=== PATIENT | female | born 1970 | race Caucasian/White ===

== ENCOUNTER 2021-06-13 04:00 | Emergency (ER) | payer OTHER, MEDICAID ==
[~2021-06-13] VITALS: Ht 165.1 cm; Wt 117.0 kg
[2021-06-13] MEDS ORDERED: LISINOPRIL20 MG PO (04:24)
[2021-06-13] MEDS ORDERED: LEVO-T75 MCG PO (04:24)
[2021-06-13] MEDS ORDERED: XANAX 0.5 MG0.5 M1 PO (04:24)
[2021-06-13] MEDS ORDERED: PROZAC20 M1 PO (04:25)
[2021-06-13] MEDS ORDERED: LIPITOR 20 MG T20 M1 PO (04:26)
[2021-06-13 05:27] LABS: URINE BILIRUBIN NEGATIVE (Negative); URINE BLOOD NEGATIVE (Negative); URINE CLARITY CLEAR; URINE COLOR YELLOW; URINE GLUCOSE-RANDOM NEGATIVE (Negative); URINE KETONES NEGATIVE (Negative); URINE LEUKOCYTES-REFLEX NEGATIVE (Negative); URINE NITRITE-REFLEX NEGATIVE (Negative); URINE PROTEIN NEGATIVE (Negative); URINE SPECIFIC GRAVITY <= 1.005 (1.005-1.030); URINE UROBILINOGEN 0.2 E.U./dl (0.2-1.0)
[2021-06-13 05:29] LABS: ABSOLUTE BASOPHILS 0.1 thou/uL (0.0-0.2); ABSOLUTE EOSINOPHILS 0.3 thou/uL (0.0-0.7); ABSOLUTE LYMPHOCYTES 1.9 thou/uL (0.8-5.3); ABSOLUTE MONOCYTES 0.5 thou/uL (0.0-1.2); ABSOLUTE NEUTROPHILS 5.5 thou/uL (1.6-8.1); BASOPHILS 0.7 %; EOSINOPHILS 3.1 %; HEMATOCRIT 41.7 % (37.0-47.0); HEMOGLOBIN 13.7 gm/dL (12.0-15.0); LYMPHOCYTES 23.4 %; MCH 30.1 pg (26.0-34.0); MCHC 32.8 g/dL (28.0-37.0); MCV 91.9 fL (80.0-100.0); NUCLEATED RBCS 0 /100WBC; PLATELET COUNT* 293 thou/uL (150-400); POLYS 66.8 %; RBC 4.54 mil/uL (4.20-5.00); RDW-CV 13.3 % (10.5-14.5); WBC 8.2 thou/uL (4.0-11.0)
[2021-06-13 05:36] LABS: CALCIUM 9.3 mg/dL (8.5-10.1); CREATININE 0.8 mg/dL (0.6-1.3); POTASSIUM 4.8 mmol/L (3.5-5.1)
[2021-06-13 06:05] VITALS: BP 121/75
--- NOTE | 2021-06-13 16:36 | EKG ---
[place] [address] ELECTROCARDIOGRAM REPORT Name: BROOKE ESPINO Room: [facility]#: [id number] Admission: 06/13/21 Attend Phys: Discharge: 06/13/21 Date of : 74 Date of Service: 06/13/21 0410 Report #: [id number] THIS REPORT FOR: //name// [facility] ED Test Date: 2021-06-13 Test Time: 04:10:43 Pat Name: BROOKE ESPINO Department: Room: Gender: F [employer]: : 1970 Requested By: Renee Talbot Order Number: [id number] Reading MD: Benitez Woodall Measurements Intervals [place] Rate: 106 P: 54 MO: 163 QRS: 30 QRSD: 94 T: 29 QT: 331 QTc: 440 Interpretive Statements Sinus tachycardia Borderline T abnormalities, inferior leads Baseline wander in lead(s) II,III,aVR,aVL,aVF,V1,V2,V3,V4,V5,V6 No previous ECG available for comparison Electronically Signed On 06-13-2021 16:36:00 CDT by Benitez Woodall [email or web address] <ELECTRONICALLY SIGNED> By: Benitez Woodall MD, FAC 06/13/21 1636 0410 0410 Benitez Woodall MD, FAC /EPI
== END 2021-06-13 06:07 | disposition home or self-care (01) ==
LOC: M.ERS 04:00
PROVIDERS: Emergency Medicine
DX: F41.9 Anxiety disorder, unspecified (principal); Z20.822 Contact with and (suspected) exposure to COVID-19; Z79.899 Other long term (current) drug therapy; Z88.5 Allergy status to narcotic agent